=== PATIENT | female | born 1980 | race Caucasian/White ===

== ENCOUNTER 2021-11-22 01:40 | Emergency (ER) | payer MEDICAID ==
[~2021-11-22] VITALS: Ht 162.6 cm; Wt 62.6 kg
[~2021-11-22 01:40] MED LIST: CARI350T PO; HYDR-5191 PO; SERT25TA PO
[2021-11-22 01:41] VITALS: BP 141/80
--- NOTE | 2021-11-22 01:42 | NUR ---
0136-PT LEFTY SHAW TO CHAIR Marie
[2021-11-22] MEDS: LORazepam 1 MG TAB PO ONE (02:09)
--- NOTE | 2021-11-22 02:09 | NUR ---
PT HERE FOR OK TO BOOK, PT DC WITH PD WITH CLEARANCE FOR [employer]OT[place]
== END 2021-11-22 02:09 ==
LOC: MED 01:40
DX: F11.23 Opioid dependence with withdrawal (principal); Z02.89 Encounter for other administrative examinations; Z88.0 Allergy status to penicillin; Z79.899 Other long term (current) drug therapy
CPT/HCPCS: 99283

== ENCOUNTER 2022-04-19 09:38 | Emergency (ER) | payer MEDICAID ==
[~2022-04-19] VITALS: Ht 172.7 cm; Wt 59.0 kg
--- NOTE | 2022-04-19 09:38 | NUR ---
0930-PT LEFTY SHAW TO CHAIR Leary
[2022-04-19 09:43] VITALS: BP 130/76
--- NOTE | 2022-04-19 09:44 | NUR ---
Pt to Chair Leary
[2022-04-19] MEDS ORDERED: CLIN300C2 PO (10:02)
[2022-04-19 10:12] VITALS: BP 130/76
--- NOTE | 2022-04-19 10:13 | NUR ---
PATIENT BIB [employer]. PATIENT EXAMINED BY DR. MCGARRY. PATIENT MEDICALLY CLEARED AND RELEASED IN CUSTODY IN STABLE CONDITION. ORIGINAL PRE-BOOK FORM GIVEN TO OFFICER MARKO.
== END 2022-04-19 10:13 ==
LOC: MED 09:38
DX: S60.922A Unspecified superficial injury of left hand, initial encounter (principal); I10 Essential (primary) hypertension; X58.XXXA Exposure to other specified factors, initial encounter; Y93.89 Activity, other specified; Y92.89 Other specified places as the place of occurrence of the external cause; Y99.8 Other external cause status
CPT/HCPCS: 99283